=== PATIENT | male | born 1965 | race Caucasian/White ===

== ENCOUNTER 2016-11-26 16:59 | Emergency (ER) | payer BC ==
[2016-11-26 17:12] VITALS: TEMP 98.4
[2016-11-26] MEDS ORDERED: ONDANSETRON 4 MG/2 ML VIAL IVP ONE (17:12)
[2016-11-26] MEDS ORDERED: KETOROLAC 30 MG/1 ML SDV IVP ONE (17:16)
[2016-11-26] MEDS ORDERED: NS 1,000 ML IV ONE ×2 (17:22→17:57)
[2016-11-26] MEDS ORDERED: fentaNYL 100 MCG/2 ML INJ IVP ONE ×5 (17:23→22:14)
--- NOTE | 2016-11-26 17:24 | EDPHY ---
H & P Time Seen by Provider: 11/26/16 17:09 HPI/ROS: 51-year-old male presents complaining of sudden onset of left flank pain similar to prior kidney stones. Positive for nausea. Review of systems As per HPI General no fever no chills no weakness HEENT no eye pain no eye discharge. No eye redness, no sore throat Respiratory no cough, no shortness of breath Cardiac no chest pain, no peripheral edema GI no abdominal pain, no diarrhea, no constipation, no nausea, no vomiting positive flank pain, no hematuria, no dysuria Musculoskeletal no myalgias, no joint pain Heme no easy bruising, no easy bleeding Endo no polyuria, no polydipsia Skin no rashes, no pruritus Neuro no syncope, no dizziness, no headaches Psych is no suicidal ideation, no homicidal ideation Past Medical/Surgical History: Kidney stones Social History: Denies alcohol or drug use Smoking Status: Never smoked Physical Exam: 51-year-old male in moderate distress secondary to left lower flank pain Mildly hypertensive 155/110, otherwise vital signs stable HEENT atraumatic normocephalic, extraocular muscles intact, anicteric Oropharynx negative for erythema negative exudate, tolerating her own secretions Neck supple no meningismus Lungs clear to auscultation bilaterally Heart regular rate and rhythm without murmur rub or gallop Abdomen nondistended normoactive bowel sounds soft nontender Back no CVA tenderness, no step-offs, no spinal tenderness Extremities no cyanosis clubbing or edema Neuro alert and oriented, no focal deficits Constitutional: Initial Vital Signs Temperature (C) 36.9 C 11/26/16 17:04 Heart Rate 88 11/26/16 17:04 Respiratory Rate 20 11/26/16 17:04 Blood Pressure 155/110 H 11/26/16 17:04 O2 Sat (%) 97 11/26/16 17:04 O2 Delivery Mode Room Air O2 (L/minute) 2 Allergies/Adverse Reactions: Penicillins Allergy (Verified 11/26/16 17:08) Home Medications: Medication Instructions Recorded NK [No Known Home Meds] 11/26/16 Medical Decision Making - Diagnostics Imaging Results: Imaging Impressions Abdomen/Pelvis CT 11/26/16 17:34 Impression: Bilateral nephrolithiasis, with mild obstructive uropathy on the left secondary to a recently passed calculus from the distal left ureter into the urinary bladder. Results called to Dr. Llanos at 6:50 PM. Attention: This CT examination is specifically designed to evaluate patients who are clinically suspected of having acute obstructive uropathy. This examination does not use radiographic contrast, and as such, provides only a limited evaluation of the abdomen, pelvis and retroperitoneum. If there is further clinical suspicion for pathological conditions other than obstructive uropathy, a complete CT evaluation of the abdomen and pelvis utilizing intravenous, oral, and rectal contrast should be considered. Abdomen X-Ray 11/26/16 22:11 Impression: 1. Bilateral nephrolithiasis. Small calculus identified within the left side of the urinary bladder. ED Course/Re-evaluation: Patient seen and evaluated for sudden onset of severe left lower flank pain associated with nausea. Patient given IV normal saline 2 L, ondansetron 4 mg, Toradol 30 mg, Dilaudid [address] with very mild hydro on the left as well as bilateral renal stones, and 1 left ureteral stone at the bladder junction CBC elevated WBC 13.9 Creatinine 1.4 Urinalysis 1 rbc, neg nitrate, neg le pt began to feel markedly improved and then had a repeat bout of severe left flank pain with nausea was then given reglan, benadryl and fentanyl After several hours patient was pain free. KUB without evidence of ureterolithiasis, stone at bladders edge and stones in the kidney, similar to CT abdomen. Impression Acute left ureterolithiasis Renal colic Plan Home Follow-up primary care physician Follow-up urology Differential Diagnosis: Musculoskeletal back pain, urinary tract infection, ureterolithiasis, renal colic, AAA - Data Points Laboratory Results: Laboratory Results 11/26/16 17:10 11/26/16 17:10 11/26/16 11/26/16 11/26/16 19:25 17:10 17:10 WBC 13.96 10^3/uL H 10^3/uL (3.80-9.50) RBC 5.58 10^6/uL 10^6/uL (4.40-6.38) Hgb 16.3 g/dL g/dL (13.7-17.5) Hct 48.1 % % (40.0-51.0) MCV 86.2 fL fL (81.5-99.8) MCH 29.2 pg pg (27.9-34.1) MCHC 33.9 g/dL g/dL (32.4-36.7) RDW 13.2 % % (11.5-15.2) Plt Count 231 10^3/uL 10^3/uL (150-400) MPV 9.6 fL fL (8.7-11.7) Neut % (Auto) 81.8 % H % (39.3-74.2) Lymph % (Auto) 8.5 % L % (15.0-45.0) [place] % (Auto) 8.2 % % (4.5-13.0) Eos % (Auto) 0.3 % L % (0.6-7.6) Baso % (Auto) 0.4 % % (0.3-1.7) Nucleat RBC Rel Count 0.0 % % (0.0-0.2) Absolute Neuts (auto) 11.42 10^3/uL H 10^3/uL (1.70-6.50) Absolute Lymphs (auto) 1.19 10^3/uL 10^3/uL (1.00-3.00) Absolute Monos (auto) 1.15 10^3/uL H 10^3/uL (0.30-0.80) Absolute Eos (auto) 0.04 10^3/uL 10^3/uL (0.03-0.40) Absolute Basos (auto) 0.05 10^3/uL 10^3/uL (0.02-0.10) Absolute Nucleated RBC 0.00 10^3/uL 10^3/uL (0-0.01) Immature Gran % 0.8 % % (0.0-1.1) Immature Gran # 0.11 10^3/uL H 10^3/uL (0.00-0.10) Sodium 139 mEq/L mEq/L (134-144) Potassium 4.1 mEq/L mEq/L (3.5-5.2) Chloride 101 mEq/L mEq/L (97-110) Carbon Dioxide 23 mEq/l mEq/l (22-31) Anion Gap 15 mEq/L mEq/L (8-16) BUN 12 mg/dL mg/dL (7-23) Creatinine 1.4 mg/dL H mg/dL (0.7-1.3) Estimated GFR 53 Glucose 121 mg/dL H mg/dL (70-100) Calcium 9.5 mg/dL mg/dL (8.5-10.4) Urine Color YELLOW Urine Appearance CLEAR Urine pH 7.0 (5.0-7.5) Ur Specific [place] 1.015 (1.002-1.030) Urine Protein NEGATIVE (NEGATIVE) Urine Ketones 1+ H (NEGATIVE) Urine Blood TRACE H (NEGATIVE) Urine Nitrate NEGATIVE (NEGATIVE) Urine Bilirubin NEGATIVE (NEGATIVE) Urine Urobilinogen 0.2 EU EU (0.2-1.0) Ur Leukocyte Esterase NEGATIVE (NEGATIVE) Urine RBC 0-1 /hpf /hpf (0-3) Urine WBC 0-1 /hpf /hpf (0-3) Ur Epithelial Cells TRACE /lpf /lpf (NONE-1+) Urine Mucus TRACE /lpf /lpf (NONE-1+) Urine Glucose NEGATIVE (NEGATIVE) Medications Given: Discontinued Medications Diphenhydramine HCl (Benadryl Injection) 25 mg IVP EDNOW ONE Stop: 11/26/16 20:03 Last Admin: 11/26/16 20:13 Dose: 25 mg Fentanyl (Sublimaze) 25 mcg IVP EDNOW ONE Stop: 11/26/16 17:24 Last Admin: 11/26/16 17:42 Dose: Not Given Fentanyl (Sublimaze) 25 mcg IVP EDNOW ONE Stop: 11/26/16 17:48 Last Admin: 11/26/16 17:53 Dose: 25 mcg Fentanyl (Sublimaze) 50 mcg IVP EDNOW ONE Stop: 11/26/16 18:50 Last Admin: 11/26/16 18:59 Dose: Not Given Fentanyl (Sublimaze) 25 mcg IVP EDNOW ONE Stop: 11/26/16 20:04 Last Admin: 11/26/16 20:13 Dose: 25 mcg Fentanyl (Sublimaze) 50 mcg IVP EDNOW ONE Stop: 11/26/16 22:15 Last Admin: 11/26/16 22:20 Dose: 50 mcg Hydromorphone HCl (Dilaudid) 1 mg IVP EDNOW ONE Stop: 11/26/16 18:52 Last Admin: 11/26/16 18:56 Dose: 1 mg Sodium Chloride (Ns) 1,000 mls @ 0 mls/hr IV ONCE ONE PRN Reason: Wide Open Stop: 11/26/16 17:23 Last Admin: 11/26/16 17:10 Dose: 1,000 mls Sodium Chloride (Ns) 1,000 mls @ 0 mls/hr IV ONCE ONE PRN Reason: Wide Open Stop: 11/26/16 17:58 Last Admin: 11/26/16 17:58 Dose: 1,000 mls Ketorolac Tromethamine (Toradol) 30 mg IVP EDNOW ONE Stop: 11/26/16 17:17 Last Admin: 11/26/16 17:21 Dose: 30 mg Metoclopramide HCl (Reglan Injection) 10 mg IVP EDNOW ONE Stop: 11/26/16 20:03 Last Admin: 11/26/16 20:13 Dose: 10 mg Ondansetron HCl (Zofran) 4 mg IVP EDNOW ONE Stop: 11/26/16 17:13 Last Admin: 11/26/16 17:21 Dose: 4 mg Tamsulosin HCl (Flomax) 0.4 mg PO EDNOW ONE Stop: 11/26/16 22:15 Last Admin: 11/26/16 22:19 Dose: 0.4 mg Departure - Departure Disposition: Home, Routine, Self-Care Clinical Impression: Renal colic on left side, Kidney calculus Condition: Good Instructions: Hydrocodone/Acetaminophen (By mouth), Ondansetron (By mouth), Kidney Stones (ED), Renal Colic (ED) Referrals: NONE *PRIMARY CARE P,. [Primary Care Provider] - As per Instructions
[2016-11-26 17:30] LABS: % IMMATURE GRANULYOCYTES 0.8 % (0.0-1.1); ABSOLUTE IMMATURE GRANULOCYTES 0.11 10^3/uL (0.00-0.10); ADD DIFF? NO; ADD MORPH? NO; ADD SCAN? NO; ATYPICAL LYMPHOCYTE FLAG 0 (0-99); FRAGMENT RBC FLAG 0 (0-99); HEMATOCRIT 48.1 % (40.0-51.0); HEMOGLOBIN 16.3 g/dL (13.7-17.5); LEFT SHIFT FLG 0 (0-99); LIPEMIA HEMOLYSIS FLAG 90 (0-99); MEAN CELL HEMOGLOBIN 29.2 pg (27.9-34.1); MEAN CELL HEMOGLOBIN CONCENTR. 33.9 g/dL (32.4-36.7); MEAN CELL VOLUME 86.2 fL (81.5-99.8); MEAN PLATELET VOLUME 9.6 fL (8.7-11.7); PLATELET CLUMPS FLAG 10 (0-99); PLATELET COUNT 231 10^3/uL (150-400); RED BLOOD CELL COUNT 5.58 10^6/uL (4.40-6.38); RED CELL DISTRIBUTION WIDTH 13.2 % (11.5-15.2)
[2016-11-26 17:35] LABS: CALCIUM 9.5 mg/dL (8.5-10.4); CREATININE 1.4 mg/dL (0.7-1.3); POTASSIUM 4.1 mEq/L (3.5-5.2)
[2016-11-26] MEDS ORDERED: HYDROmorphONE/DILAUDID 1 MG/ML INJ IVP ONE (18:51)
[2016-11-26 19:45] LABS: COLOR YELLOW; LEUKOCYTE ESTERASE,URINE NEGATIVE (NEGATIVE); NITRITE,URINE NEGATIVE (NEGATIVE)
[2016-11-26 20:00] LABS: MUCUS TRACE /lpf (NONE-1+); RBC,URINE 0-1 /hpf (0-3); WBC,URINE 0-1 /hpf (0-3)
[2016-11-26] MEDS ORDERED: METOCLOPRAMIDE 10 MG/2 ML VIAL IVP ONE (20:02)
[2016-11-26] MEDS ORDERED: TAMSULOSIN HCL 0.4 MG CAP PO ONE (22:14)
[2016-11-26] MEDS ORDERED: HYDROCOD/APAP 5/325 PREPACK#6 BTL TAKEHOME ONE (23:12)
[2016-11-26] MEDS ORDERED: ONDANSETRON 4MG PREPACK#2 BTL TAKEHOME ONE (23:12)
[2016-11-26 23:44] VITALS: BP 153/81; PULSE 92; RESP 16; O2SAT 94
== END 2016-11-26 23:43 | disposition home or self-care (01) ==
LOC: CED 16:59
DX: N20.0 Calculus of kidney (principal)
CPT/HCPCS: 74000-PO; 74176-PO; 80048-PO; 81003-PO; 81015-PO; 85025-PO; 96374; J1170; J1200; J1885; J2405; J2765; J3010